=== PATIENT | male | born 1990 | race American Indian/Alaskan Native ===

== ENCOUNTER 2017-04-27 21:27 | Emergency (ER) | payer MEDICAID ==
[~2017-04-27] VITALS: Ht 180.3 cm; Wt 151.0 kg
[2017-04-27 22:28] LABS: BLOOD UREA NITROGEN 10 mg/dL (7-18)
[2017-04-27] MEDS ORDERED: ASPIRIN 81 MG TABLET CHEW PO ONE (22:30)
[2017-04-27 22:33] LABS: IS PT STATUS REG ER OR PRE ER? YES
[2017-04-27] MEDS ORDERED: ASPIRIN 81 MG TABLET CHEW ONE (23:04)
[2017-04-27 23:27] VITALS: BP 131/84
== END 2017-04-27 23:47 | disposition home or self-care (01) ==
LOC: ED 23:41
DX: R00.2 Palpitations (principal); R06.00 Dyspnea, unspecified; K21.9 Gastro-esophageal reflux disease without esophagitis; I10 Essential (primary) hypertension
CPT/HCPCS: 36415; 71010; 80048; 82040; 83735; 84484; 85025; 93005; 99285